=== PATIENT | female | born 1985 | race African-American/Black ===

== ENCOUNTER 2022-07-03 19:26 | Emergency (ER) | payer MEDICAID, OTHER ==
[~2022-07-03] VITALS: Ht 170.2 cm; Wt 82.9 kg
[2022-07-03] MEDS ORDERED: ACETAMINOPHEN 325MG TABLET PO ONE (23:30)
[2022-07-03] MEDS ORDERED: DEXAMETHASONE 4MG/ML 1ML VIAL IM SCH (23:30)
[2022-07-03] MEDS ORDERED: PEN G BENZ/PEN G PROCAINE CR 1.2 MMU/2 ML IM ONE (23:30)
[2022-07-04 01:24] VITALS: BP 139/87
== END 2022-07-04 01:25 | disposition home or self-care (01) ==
LOC: ER 19:26
DX: J03.90 Acute tonsillitis, unspecified (principal); Z88.6 Allergy status to analgesic agent; Z98.890 Other specified postprocedural states
CPT/HCPCS: 96372; 99284; J0558; J1100

== ENCOUNTER 2023-03-08 18:10 | Emergency (ER) | payer OTHER ==
[~2023-03-08] VITALS: Ht 170.2 cm; Wt 96.7 kg
[2023-03-08 18:25] VITALS: BP 139/90
[2023-03-08 19:20] LABS: CLARITY URINE CLEAR (CLEAR); COLOR URINE YELLOW (YELLOW); KETONES URINE NEGATIVE (NEGATIVE); LEUKOCYTE ESTERASE URINE NEGATIVE (NEGATIVE); NITRITE URINE NEGATIVE (NEGATIVE); OCCULT BLOOD URINE NEGATIVE (NEGATIVE); PH URINE 7.5 (4.5-8.0); PROTEIN URINE NEGATIVE (NEGATIVE); SPECIFIC GRAVITY URINE 1.006 (1.005-1.030); UROBILINOGEN URINE 0.2 E.U./dL (0.2-1.0)
[2023-03-08 19:33] LABS: BASOPHILS % 0.6 % (0.0-2.0); EOSINOPHILS % 2.6 % (0.0-5.0); HEMATOCRIT. 34.7 % (36.0-48.0); HEMOGLOBIN. 11.5 g/dL (12.0-16.0); LYMPHOCYTES % 48.8 % (20.0-50.0); MEAN CORPUSCULAR HEMOGLOBIN 25.5 pg (28.0-32.0); MEAN CORPUSCULAR VOLUME 77.2 fL (81.0-99.0); MEAN PLATELET VOLUME 7.8 fl (7.4-10.4); MONOCYTES % 7.5 % (2.0-8.0); NEUTROPHILS % 40.5 % (40.0-76.0); PLATELET 328 x1000/uL (130-400); RED CELL DISTRIBUTION WIDTH 16.5 % (11.6-14.6)
[2023-03-08 19:39] LABS: CHLORIDE 104 mEq/L (98-107)
[2023-03-08 20:37] LABS: D-DIMER 0.36 mg/L FEU (<0.50); PARTIAL THROMBOPLASTIN TIME 29.7 sec (23.4-31.0); PROTHROMBIN TIME 10.5 sec (9.6-11.0)
[2023-03-08] MEDS ORDERED: PNV1TABL50 MT (20:55)
== END 2023-03-08 21:28 | disposition home or self-care (01) ==
LOC: ER 18:10
DX: O26.891 Other specified pregnancy related conditions, first trimester (principal); R07.89 Other chest pain; R05.9 Cough, unspecified; Z3A.01 Less than 8 weeks gestation of pregnancy; Z88.6 Allergy status to analgesic agent
CPT/HCPCS: 36415; 71045; 80053; 81003; 81025; 84702; 85025; 85379; 86850; 86900; 99284